=== PATIENT | male | born 1990 | race Caucasian/White ===

== ENCOUNTER → 2020-07-13 | Outpatient (CLI) | payer BC, OTHER ==
[~2020-07-13] MED LIST: IBUPROFEN 600600 M1 PO; NORFLEX100 MG PO; TRAMADOL 50 MG50 MG PO
== END ==
LOC: CATH 13:14 → CAT 13:14
PROVIDERS: ATTEND Family Medicine
DX: K59.00 Constipation, unspecified (principal)

== ENCOUNTER → 2021-05-25 | Outpatient (CLI) | payer BC, OTHER | LOC: RAD 12:05 | PROVIDERS: ATTEND Family Medicine | DX: M54.6 Pain in thoracic spine (principal) ==